=== PATIENT | female | born 1940 | race Caucasian/White ===

== ENCOUNTER 2023-03-09 19:06 | Emergency (ER) | payer SELFPAY ==
[2023-03-09] MEDS ORDERED: NA CHLORIDE 0.9% 1,000 ML IV ONE (19:07)
[2023-03-09] MEDS ORDERED: EPINEPHrine 1 MG/10 ML SYR IV ONE (19:07)
--- NOTE | 2023-03-09 19:45 | ER ---
Nurse's Notes [facility] [place], [place] Name: Emerald Slater Age: 82 yrs Sex: Female : 1940 Arrival Date: 03/09/2023 Time: 19:06 Bed 4 Private MD: Diagnosis: Cardiac arrest, cause unspecified;Hyperthermia Presentation: 03/09 19:00 Coronavirus screen: At this time, the client does not indicate any symptoms associated rv with coronavirus-19. Initial Sepsis Screen: Does the patient meet any 2 criteria? No. Patient's initial sepsis screen is negative. Does the patient have a suspected source of infection? No. Patient's initial sepsis screen is negative. 19:05 Chief complaint: PT DRIVEN TO BACK DOCK BY FAMILY "I CAN'T WAKE HER UP." PT FOUND TO BE bp PULSELESS AND APNEIC, PLACED ON STRETCHER AND MOVED TO ER RM 4, CPR INITIATED EN ROUTE TO RM 4. 19:05 Method Of Arrival: Stretcher bp 19:15 Ebola Screen: No symptoms or risks identified at this time. Risk Assessment: Do you mb9 want to hurt yourself or someone else? Unable to obtain. Onset of symptoms was March 09, 2023. 19:15 Acuity: VERONICA 1 mb9 Triage Assessment: 20:37 General: Behavior is unresponsive. rv Historical: - Allergies: 19:19 Unable to obtain; mb9 - Home Meds: 19:19 Unable to obtain [Active]; mb9 - PMHx: 19:19 Unable to Obtain; mb9 - PSHx: 19:19 Unable to Obtain; mb9 - Immunization history:: Adult Immunizations unknown. - Social history:: Smoking status: unknown. - History obtained from: . Screenin:00 [facility] [place] ED Fall Risk Assessment (Adult) History of falling in the last 3 months, rv including since admission Confusion or Disorientation. 19:00 Abuse screen: UNKNOWN. Nutritional screening: UNKNOWN. Tuberculosis screening: No rv symptoms or risk factors identified. Assessment: 19:00 Reassessment: No central pulse palpated. CPR started. RT and ERP at bedside. mb9 19:00 General: Appears UNRESPONSIVE. rv 19:00 Pain: Unable to use pain scale. Patient is unresponsive. Neuro: Level of Consciousness rv is unresponsive. Cardiovascular: Pulses are absent in right femoral artery, left femoral artery, left carotid pulse and right carotid pulse. Respiratory: Respiratory effort is UNRESPONSIVE, NOT BREATHING. GI: No signs and/or symptoms were reported involving the gastrointestinal system. : No signs and/or symptoms were reported regarding the genitourinary system. 19:02 Reassessment: No central pulse palpated. CPR resumed. mb9 19:04 Reassessment: No central pulse palpated. CPR resumed. mb9 19:06 Reassessment: No central pulse palpated. Rhythm fine ventricular rhythm. Pt shocked at mb9 200 J. CPR resumed. 19:08 Reassessment: No central pulse palpated. Rhythm PEA. CPR resumed. mb9 19:10 Reassessment: No central pulse palpated. CPR resumed. mb9 19:12 Reassessment: No central pulse palpated. CPR resumed. mb9 19:14 Reassessment: No central pulse palpated. Time of pronounced by Dr. Lui. mb9 Vital Signs: 19:02 Temp 106.8(R); mb9 ED Course: 19:00 Patient has correct armband on for positive identification. Provided Education on: NOT rv APPLICABLE. 19:03 Inserted saline lock: 20 gauge in right antecubital area, using aseptic technique. rv intraosseous access in left, using aseptic technique LEFT LOWER LEG. 19:03 Assisted provider with intubation using 7.5 mm ETT via oral route. ET tube secured at mb9 [facility]. Set up intubation tray. Intubated by Meet Lui MD. 19:08 Patient arrived in ED. nj1 19:15 Meet Lui MD is Attending Physician. rn 19:16 Triage completed. mb9 19:16 Arm band placed on. mb9 19:44 Meet Lui MD is Pronouncing Provider. rn 20:33 Dominick Acharya RN is Primary Nurse. rv Administered Medications: 19:00 Drug: EPINEPHrine 1:10,000 IVP 1 mg Route: IVP; Site: right antecubital; mb9 19:01 Drug: Sodium Bicarbonate IVP 1 amp {Note: via IO.} Route: IVP; Site: Other; mb9 19:03 Drug: EPINEPHrine 1:10,000 IVP 1 mg Route: IVP; Site: right antecubital; mb9 19:06 Drug: EPINEPHrine 1:10,000 IVP 1 mg Route: IVP; Site: right antecubital; mb9 19:09 Drug: EPINEPHrine 1:10,000 IVP 1 mg Route: IVP; Site: right antecubital; mb9 19:09 Drug: Sodium Bicarbonate IVP 1 amp Route: IVP; Site: right antecubital; mb9 19:12 Drug: EPINEPHrine 1:10,000 IVP 1 mg Route: IVP; Site: right antecubital; mb9 Medication: 19:00 VIS not applicable for this client. rv Outcome: 20:37 Patient : Time of 19:14 Pronounced by Meet Lui MD NM notified rv 20:37 Condition: 20:37 Instructed on DISCHARGE PROCESS 22:01 Patient left the ED. ll3 Signatures: Meet Lui MD MD rn Peltier, Brian, RN RN Dominick Arce, RN RN rv Yousif Busch RN RN ll3 Alyce Sheridna, RN RN mb9 Precious Werner RN RN nj1 Corrections: (The following items were deleted from the chart) 19:21 19:00 Reassessment: No central pulse palpated. CPR started mb9 mb9 20:37 19:03 Inserted saline lock: 20 gauge in right antecubital area, using aseptic rv technique. intraosseous access in right, using aseptic technique mb9
--- NOTE | 2023-03-09 19:45 | EDPHYS ---
Physician Documentation [facility] Name: Emerald Slater Age: 82 yrs Sex: Female : 1940 Arrival Date: 03/09/2023 Time: 19:06 Bed 4 Private MD: ED Physician Meet Lui HPI: 03/09 19:39 This 82 yrs old Female presents to ER via Stretcher with complaints of CPR. rn 19:39 Preceding the arrest, the patient unresponsive. The arrest occurred in a car. The rn patient has not experienced similar symptoms in the past. reports driving from out of town, AC wasn't working, last spoke with her about 3 hours ago, 30 min ago noticed she was slumped over when driving into town, and when got to [place] couldn't wake her up, drove straight to hospital, reports could not feel a pulse when checked on her. . Historical: - Allergies: 19:19 Unable to obtain; mb9 - Home Meds: 19:19 Unable to obtain [Active]; mb9 - PMHx: 19:19 Unable to Obtain; mb9 - PSHx: 19:19 Unable to Obtain; mb9 - Immunization history:: Adult Immunizations unknown. - Social history:: Smoking status: unknown. - History obtained from: . ROS: 19:39 Unable to obtain ROS due to comatose state. rn Exam: 19:39 Constitutional: Overweight female, cyanotic face and extremities. Head/Face: rn Cyanotic Eyes: Pupils dilated, fixed Cardiovascular: No spont cardiac activity Respiratory: NO spont breaths Abdomen/GI: NO abd distension or discoloration Skin: Hot to touch Neuro: Unresponsive, GCS3 Vital Signs: 19:02 Temp 106.8(R); mb9 Procedures: 19:15 Intubation: Intubated orally using # 4 Urszula blade with 7.5 mm ETT. was successful rn on first attempt. Ventilated with Ambu bag. Cricoid pressure applied during procedure. Tube secured with ETT carnes at right side of mouth measured 23 cm at gum. Placement verified by CO2 detector with (+) color change, auscultating bilateral breath sounds, O2 saturation after procedure was 80 %. Patient tolerated well. MDM: 19:15 Patient medically screened. rn 19:39 Differential diagnosis: arrythmia, cardiac arrest, respiratory arrest, heat stroke. rn Data reviewed: vital signs, nurses notes. ED course: Pt hyperthermic, unclear etiology of arrest, but intubated and no response to ACLS. Notified family. . 03/09 19:27 Order name: glucometer results - FOR PT WITH NO ID mb9 Administered Medications: 19:00 Drug: EPINEPHrine 1:10,000 IVP 1 mg Route: IVP; Site: right antecubital; mb9 19:01 Drug: Sodium Bicarbonate IVP 1 amp {Note: via IO.} Route: IVP; Site: Other; mb9 19:03 Drug: EPINEPHrine 1:10,000 IVP 1 mg Route: IVP; Site: right antecubital; mb9 19:06 Drug: EPINEPHrine 1:10,000 IVP 1 mg Route: IVP; Site: right antecubital; mb9 19:09 Drug: EPINEPHrine 1:10,000 IVP 1 mg Route: IVP; Site: right antecubital; mb9 19:09 Drug: Sodium Bicarbonate IVP 1 amp Route: IVP; Site: right antecubital; mb9 19:12 Drug: EPINEPHrine 1:10,000 IVP 1 mg Route: IVP; Site: right antecubital; mb9 Disposition: 19:39 . rn Disposition Summary: 03/09/23 19:45 Patient Location: Acquisition Consultant rn Pronouncing Physician: Meet Lui rn Time of : 19:14 03/09/2023 rn Diagnosis - Cardiac arrest, cause unspecified rn - Hyperthermia rn Signatures: Dispatcher [employer] EDMeet Johnson MD MD rn Breneman, Mary Beth, RN RN mb9
== END 2023-03-09 22:01 ==
LOC: ER 19:06
PROC: 0BH17EZ Insertion of Endotracheal Airway into Trachea, Via Natural or Artificial Opening (ICD-10-PCS; principal; 2023-03-09)
PROC: 5A1935Z Respiratory Ventilation, Less than 24 Consecutive Hours (ICD-10-PCS; 2023-03-09)
DX: I46.9 Cardiac arrest, cause unspecified (principal); R50.9 Fever, unspecified
CPT/HCPCS: 31500; 36415; 36680; 82947; 99291; J0171; J7030